=== PATIENT | male | born 1955 | race Two or more races ===

== ENCOUNTER 2020-10-22 20:28 | Emergency (ER) | payer SELFPAY ==
[~2020-10-22] VITALS: Ht 170.2 cm; Wt 77.1 kg
--- NOTE | 2020-10-22 20:41 | NUR ---
ED Nurse Note: PT brought in by [place] [employer]. PT can move all four extremities and has stable vitals on RA as documented. He is axox4. Per EMS he states he had a bottle of alcohol and was cold so he called 911. He is complianing of 10/10 chest pain but is asking mostly for warm blankets and a sandwich. IV line placed, labs sent, urine sent, ekg done at bedside.
[2020-10-22 20:45] VITALS: BP 120/84
--- NOTE | 2020-10-22 20:48 | Emergency Room Report ---
History of Present Illness General Chief Complaint: Alcohol Intoxication Source: Patient (Frederic Marquez MD) Present Illness HPI Disclaimer: Please note that this report is being documented using [employer] technology. This can lead to erroneous entry secondary to incorrect i nterpretation by the dictating instrument. HPI: 64-year-old male with history of hypertension presents by EMS for evaluation of alcohol intoxication. Primarily [place] Citizen-speaking. Patient was brought in by [facility] who state the patient is well-known to them. Patient was picked up at a liquor store with complaints of alcohol intoxication. He admits to drinking 1 L of hard liquor today. He reports left-sided chest pain is nonradiating. Denies cough or shortness of breath. Reports back pain. According to EMS these are frequent complaints of the patient. Unknown if he has CAD. Does not take any medications according to their EMR system. Patient is awake, alert and conversant. Slight slurring of his speech but able to make his needs known clearly. PMH: Chronic alcohol use PSH: Denied Allergies: Denied Social Hx: Regular alcohol use (Frederic Marquez MD) Allergies: Coded Allergies: No Known Allergies (Unverified , 10/22/20) COVID-19 Screening Contact w/high risk pt: No Experienced COVID-19 symptoms?: No COVID-19 Testing performed TEA BLENDER: No (Frederic Marquez MD) Review of Systems All Other Systems: negative except mentioned in HPI (Frederic Marquez MD) Physical Exam Vital Signs Date Time Temp Pulse Resp B/P (MAP) Pulse Ox O2 Delivery O2 Flow Rate FiO2 10/22/20 20:31 98.4 98 16 124/82 (96) 98 Room Air General: Awake and alert, no acute distress, disheveled and unkempt, appears slightly intoxicated HEENT: NC/AT. EOMI. mild dysarthria Cardiovascular: Borderline tachycardia. S1 and S2 normal. No murmur appreciated Resp: Normal work of breathing. No cough, wheezing or crackles appreciated Abdomen: Abdomen is soft, nondistended. Nontender Skin: Intact. No abrasions, laceration or rash over the exposed skin MSK: Normal tone and bulk. Moving all extremities. No obvious deformity. Neuro: Awake and alert. Mentating appropriately. Appears slightly intoxicated but conversant (Frederic Marquez MD) Medical Decision Making Diagnostic Impression: Primary Impression: Acute alcoholic intoxication Additional Impression: Elevated troponin ER Course 64-year-old male brought in for evaluation of alcohol intoxication. Patient is awake, arrives with stable vital signs. EKG on arrival shows left axis deviation and likely incomplete right bundle branch block but no signs of acute ischemia. Chest x-ray shows no infiltrates but does show some cardiomegaly. Alcohol elevated. Troponin returned elevated. No prior for comparison. Other labs within normal limits. Will admit for ACS rule out. Laboratory Tests Test 10/22/20 20:53 10/22/20 21:25 White Blood Count 4.0 K/UL (4.8-10.8) L Red Blood Count 3.80 M/UL (4.70-6.10) L Hemoglobin 11.9 G/DL (14.2-18.0) L Hematocrit 35.9 % (42.0-52.0) L Mean Corpuscular Volume 94 FL (80-99) Mean Corpuscular Hemoglobin 31.4 PG (27.0-31.0) H Mean Corpuscular Hemoglobin Concent 33.3 G/DL (32.0-36.0) Red Cell Distribution Width 17.4 % (11.6-14.8) H Platelet Count 130 K/UL (150-450) L Mean Platelet Volume 7.2 FL (6.5-10.1) Neutrophils (%) (Auto) 46.8 % (45.0-75.0) Lymphocytes (%) (Auto) 41.4 % (20.0-45.0) Monocytes (%) (Auto) 6.5 % (1.0-10.0) Eosinophils (%) (Auto) 3.9 % (0.0-3.0) H Basophils (%) (Auto) 1.3 % (0.0-2.0) Sodium Level 142 MMOL/L (136-145) Potassium Level 4.0 MMOL/L (3.5-5.1) Chloride Level 106 MMOL/L (98-107) Carbon Dioxide Level 28 MMOL/L (21-32) Anion Gap 8 mmol/L (5-15) Blood Urea Nitrogen 10 mg/dL (7-18) Creatinine 0.8 MG/DL (0.55-1.30) Estimated Glomerular Filtration Rate > 60 mL/min (>60) Glucose Level 89 MG/DL (74-106) Calcium Level 8.5 MG/DL (8.5-10.1) Total Bilirubin 0.5 MG/DL (0.2-1.0) Aspartate Amino Transferase (AST) 38 U/L (15-37) H Alanine Aminotransferase (ALT) 39 U/L (12-78) Alkaline Phosphatase 128 U/L (46-116) H Troponin I 0.121 ng/mL (0.000-0.056) Total Protein 7.8 G/DL (6.4-8.2) Albumin 3.7 G/DL (3.4-5.0) Globulin 4.1 g/dL Albumin/Globulin Ratio 0.9 (1.0-2.7) L Salicylates Level 2.4 ug/mL (2.8-20) L Acetaminophen Level < 2 MCG/ML (10-30) L Serum Alcohol 275 mg/dL Urine Opiates Screen Pending Urine Barbiturates Screen Pending Phencyclidine (PCP) Screen Pending Urine Amphetamines Screen Pending Urine Benzodiazepines Screen Pending Urine Cocaine Screen Pending Urine Marijuana (THC) Screen Pending (Frederic Marquez MD) ER Course 64-year-old male here with alcohol intoxication. I spoke with the physician at [facility], who said the patient comes to the their emergency department almost daily. Review of records show the patient has a persistent elevated troponin of around 1.2-1.4. Patient's troponin tonight is within this range. He is in no acute distress whatsoever and has remained hemodynamically stable in the emergency department. Suitable for discharge when clinically sober. I, Da Spear MD, confirm that this patient has been fully evaluated and is stable for discharge. (Da Spear M.D.) EKG Diagnostic Results Troponin ordered: Yes When was troponin ordered?: Oct 22, 2020 EKG Time: 20:48 Rate: normal Rhythm: NSR ST Segments: no acute changes Other Impression Sinus rhythm, left axis, normal intervals, incomplete right bundle branch block. QTc [address] segment elevation (Frederic Marquez MD) Rhythm Strip Diag. Results Rhythm Strip Time: 20:48 EP Interpretation: yes Rate: 90 Rhythm: NSR, no PVC's, no ectopy (Frederic Marquez MD) Chest X-Ray Diagnostic Results Chest X-Ray Diagnostic Results : Chest X-Ray Ordered: Yes # of Views/Limited/Complete: 1 View Indication: Chest Pain EP Interpretation: Yes Interpretation: no consolidation, no effusion, no pneumothorax, no acute cardiopulmonary disease Impression: No acute disease Electronically Signed by: Electronically signed by Dr. Frederic Marquez MD (Frederic Marquez MD) Last Vital Signs Date Time Temp Pulse Resp B/P (MAP) Pulse Ox O2 Delivery O2 Flow Rate FiO2 10/22/20 20:31 98.4 98 16 124/82 (96) 98 Room Air (Frederic Marquez MD) Disposition: ADMITTED INPATIENT Condition: Serious Scripts Folic Acid* (FOLIC ACID*) 1 Mg Tablet 1 MG ORAL DAILY for SUPPLEMENT, #30 TAB Prov: Frederic Marquez MD 10/22/20 Thiamine Hcl* (VITAMIN B-1*) 100 Mg Tablet 100 MG ORAL DAILY, #30 TAB 0 Refills Prov: Frederic Marquez MD 10/22/20 Frederic Marquez MD Oct 22, 2020 20:48 Da Spear M.D. Oct 22, 2020 23:35
[2020-10-22] MEDS ORDERED: VITAMIN B-1100 MG ORAL (21:02)
[2020-10-22] MEDS ORDERED: FOLIC ACID1 MG ORAL (21:02)
[2020-10-22 21:06] LABS: BASOPHILS % (AUTO) 1.3 % (0.0-2.0); EOSINOPHILS % (AUTO) 3.9 % (0.0-3.0); HEMATOCRIT 35.9 % (42.0-52.0); HEMOGLOBIN 11.9 G/DL (14.2-18.0); LYMPHOCYTES % (AUTO) 41.4 % (20.0-45.0); MEAN CORPUSCULAR VOLUME 94 FL (80-99); MONOCYTES % (AUTO) 6.5 % (1.0-10.0); NEUTROPHILS % (AUTO) 46.8 % (45.0-75.0); PLATELET COUNT 130 K/UL (150-450); RED CELL DISTRIBUTION WIDTH 17.4 % (11.6-14.8)
[2020-10-22 21:19] LABS: ANION GAP 8 mmol/L (5-15); BLOOD UREA NITROGEN 10 mg/dL (7-18); CALCIUM 8.5 MG/DL (8.5-10.1); CARBON DIOXIDE 28 MMOL/L (21-32); CHLORIDE 106 MMOL/L (98-107); CREATININE 0.8 MG/DL (0.55-1.30); SODIUM 142 MMOL/L (136-145)
[2020-10-22 21:23] LABS: ALANINE AMINOTRANSFERASE 39 U/L (12-78); ALBUMIN 3.7 G/DL (3.4-5.0); ALBUMIN/GLOBULIN RATIO 0.9 (1.0-2.7); ALKALINE PHOSPHATASE 128 U/L (46-116); ASPARTATE AMINO TRANSFERASE 38 U/L (15-37); BILIRUBIN,TOTAL 0.5 MG/DL (0.2-1.0)
--- NOTE | 2020-10-22 22:00 | NUR ---
ED Nurse Note: PT is resting comfortably with eyes closed, vitals stable on RA. Moved pt rooms dt nessesity of tele monitoring.
[2020-10-22 22:54] VITALS: BP 116/67
--- NOTE | 2020-10-23 00:13 | NUR ---
ED Nurse Note: Pt is resting comfortably, warm blankets applied again. Pt has eyes closed with even respirations. No signs of distress noted.
[2020-10-23 01:50] VITALS: BP 114/70
--- NOTE | 2020-10-23 01:51 | NUR ---
ED Nurse Note: Pt's eyes are closed, breathing is even and unlabored. No signs of distress noted.
--- NOTE | 2020-10-23 04:13 | NUR ---
ED Nurse Note: Pt is requesting food and water. Pt is able to verbalize in complete sentances. Breathing is even and unlabored.
[2020-10-23 04:35] VITALS: BP 114/90
--- NOTE | 2020-10-23 04:38 | NUR ---
ER DISCHARGE NOTE: Patient is cleared to be discharged per ERMD, pt is aox4, on room air, with stable vital signs. pt was given dc and prescription instructions, pt was able to verbalize understanding, pt id band and iv site removed without complications. pt is able to ambulate with walker as is his baseline. pt took all belongings. Pt refused placement options. Warm dry clothes provided appropriate for the weather. Kiana and juice provided.
--- NOTE | 2020-10-23 09:34 | Diagnostic Imaging Report ---
Indication: Chest pain Technique: XRAY Chest 1v Comparison: None Findings: Borderline cardiomegaly although heart size may be exaggerated by AP technique. Mediastinal contours are sharp. Mild right hilar prominence There is no focal airspace consolidation. No pleural effusions or pneumothorax. There are degenerative changes in the spine. No acute osseous body. Impression: No radiographic evidence of acute cardiopulmonary disease. Borderline cardiomegaly and mild hilar prominence, likely related to vascular ectasia and artifactually exaggerated due to AP technique. Additional etiologies are not excluded. Recommend further evaluation with follow-up PA and lateral views of the chest or chest CT.
== END 2020-10-23 04:40 | disposition home or self-care (01) ==
LOC: EDBD 20:28 → EMR 20:38 → CANBEDREQ 10-23 00:20 → EMR 10-23 04:40
DX: F10.129 Alcohol abuse with intoxication, unspecified (principal); Y90.8 Blood alcohol level of 240 mg/100 ml or more; R77.8 Other specified abnormalities of plasma proteins
CPT/HCPCS: 36415; 71045; 80053; 80307; 84484; 85025; 93005; 96360; 99285; G0480; J7030; U0002

== ENCOUNTER 2020-11-04 22:40 | Emergency (ER) | payer SELFPAY ==
[~2020-11-04] VITALS: Ht 170.2 cm; Wt 72.6 kg
[~2020-11-04 22:40] MED LIST: FOLIC ACID1 MG ORAL; VITAMIN B-1100 MG ORAL
--- NOTE | 2020-11-04 22:45 | NUR ---
ED Nurse Note: Pt [facility] [place] [employer] A42 from [place] for ETOH and arm pain.Per EMS report pt was seen at [facility] for same complaint and was dischaged, pt called 911 c/o arm pain. Upon arrival pt is uncooperative, not answering questions. AAOx2, breathing even and unlabored, vital signs stable.
[2020-11-04 22:47] VITALS: BP 112/70
--- NOTE | 2020-11-04 22:52 | Emergency Room Report ---
History of Present Illness General Chief Complaint: Intoxication Source: Patient, EMS Present Illness HPI Disclaimer: Please note that this report is being documented using [employer] technology. This can lead to erroneous entry secondary to incorrect interpretation by the dictating instrument. HPI: 65-year-old male presents by EMS for evaluation of alcohol intoxication. He was picked up at [employer] [place] for acting drunk. Patient has a long history of alcohol abuse and typically is seen at [facility] however they are saturation tonight he was brought to our emergency department. He has been here in the past. Patient was seen at [facility] twice today once for a fall sustaining an abrasion to the right forearm. Appears cleaned and no active bleeding at this time. Patient will not quantify how much he is drinking. He is being very difficult. His only complaint at this time is that he is cold and is requesting blankets and something to eat. PMH: Alcohol abuse PSH: Unable to obtain Allergies: Unable to obtain Social Hx: Alcohol abuse Allergies: Coded Allergies: No Known Allergies (Unverified , 10/22/20) COVID-19 Screening Contact w/high risk pt: No Experienced COVID-19 symptoms?: No Review of Systems All Other Systems: limited - Unable to obtain due to patient being uncooperative Physical Exam General: Awake and alert, appears mildly intoxicated, aggressive and rude with staff HEENT: NC/AT. EOMI. Cardiovascular: RRR. S1 and S2 normal. No murmur appreciated Resp: Normal work of breathing. No cough, wheezing or crackles appreciated Abdomen: Abdomen is soft, nondistended. Nontender Skin: Intact. No abrasions, laceration or rash over the exposed skin MSK: Normal tone and bulk. Moving all extremities. No obvious deformity. Neuro: Awake and alert. Mentating appropriately. Mildly intoxicated Medical Decision Making Diagnostic Impression: Primary Impression: Acute alcoholic intoxication ER Course Is a 65-year-old male with history of chronic alcohol abuse presents for alcohol intoxication. He is awake alert and requesting blankets and something to eat. He has no other complaints at this time. He has been seen twice today at [facility] for similar complaints according to EMS. Will allow to metabolize in ER. Do not believe he requires emergent labs or imaging at this time. Will advance work-up if his condition should change. 0540: Patient is allowed to metabolize in the emergency department. He is sober ambulating with the use of his walker that was brought by EMS. Stable for discharge. Disposition: HOME, SELF-CARE Condition: Stable Frederic Marquez MD Nov 04, 2020 22:52
--- NOTE | 2020-11-05 00:07 | NUR ---
ED Nurse Note: pt laying in bed sleeping, arousable to voice. No complaints from pt.
--- NOTE | 2020-11-05 02:35 | NUR ---
ED Nurse Note: pt laying in bed with eyes closed, breathing even and unlabored. Warm blankets provided.
[2020-11-05 05:50] VITALS: BP 119/67
--- NOTE | 2020-11-05 05:50 | NUR ---
ER DISCHARGE NOTE: Patient is cleared to be discharged per ERMD, pt is aox4, on room air, with stable vital signs. pt was given dc and prescription instructions, homeless resource packet given to pt, pt was able to verbalize understanding, pt id band removed. pt is able to ambulate with steady gait. pt took all belongings.
== END 2020-11-05 05:50 | disposition home or self-care (01) ==
LOC: EDBD 22:40 → EMR 23:35
DX: F10.129 Alcohol abuse with intoxication, unspecified (principal)
CPT/HCPCS: 99282

== ENCOUNTER 2020-11-29 01:58 | Emergency (ER) | payer SELFPAY ==
[~2020-11-29] VITALS: Ht 172.7 cm; Wt 72.6 kg
[2020-11-29] MEDS ORDERED: Haloperidol 5mg/ml Inj IM ONE ×2 (02:00→03:00)
[2020-11-29] MEDS ORDERED: LORazepam Inj 2mg/ml 1ml IM ONE (02:00)
--- NOTE | 2020-11-29 02:00 | NUR ---
Patient was brought in by ambulance. Patient was found laying in the [place]. Patient is here for alcohol intoxication.
[2020-11-29] MEDS ORDERED: LORazepam Inj 2mg/ml 1ml ONE (02:14)
--- NOTE | 2020-11-29 02:29 | Emergency Room Report ---
History of Present Illness General Chief Complaint: Alcohol Intoxication Present Illness HPI 65-year-old male with history of alcoholism here with alcohol intoxication. Patient was found laying down in a park yelling obscenities. When paramedics arrived the patient was complaining of generalized body pain and was screaming obscenities at the paramedics. Here in the emergency department the patient smells of alcohol and is acting erratically yelling at staff. He admits to drinking heavy mount of alcohol tonight. Denies drug use. Denies homicidal suicidal ideation. Allergies: Coded Allergies: No Known Allergies (Unverified , 10/22/20) COVID-19 Screening Contact w/high risk pt: No Experienced COVID-19 symptoms?: No COVID-19 Testing performed FIRE SERVICES PLUMBER: No Nursing Documentation-PMH Hx Hypertension: Yes Hx Cerebrovascular Accident: Yes Review of Systems All Other Systems: negative except mentioned in HPI Physical Exam Vital Signs Date Time Temp Pulse Resp B/P (MAP) Pulse Ox O2 Delivery O2 Flow Rate FiO2 11/29/20 01:40 97.5 96 20 133/90 (104) 98 Sp02 EP Interpretation: reviewed, normal General Appearance: no apparent distress, alert, non-toxic Head: normocephalic, other - Superficial abrasion parietal scalp Eyes: bilateral eye normal inspection, bilateral eye PERRL ENT: hearing grossly normal, normal pharynx, no angioedema, normal voice Neck: full range of motion, supple/symm/no masses Respiratory: chest non-tender, lungs clear, normal breath sounds, speaking full sentences Cardiovascular #1: regular rate, rhythm, no edema Cardiovascular #2: 2+ carotid (R), 2+ carotid (L), 2+ radial (R), 2+ radial (L), 2+ dorsalis pedis (R), 2+ dorsalis pedis (L) Gastrointestinal: normal bowel sounds, non tender, soft, non-distended, no guarding, no rebound Rectal: deferred Genitourinary: normal inspection, no CVA tenderness Musculoskeletal: back normal, normal range of motion, gait/station normal, non- tender Neurologic: alert, motor strength/tone normal, oriented x3, sensory intact, responsive, speech normal Psychiatric: other - Heavily intoxicated. Smells of alcohol. Yelling obscenities at staff Lymphatic: no adenopathy Medical Decision Making Diagnostic Impression: Primary Impression: Acute alcoholic intoxication ER Course Laboratory Tests Test 11/29/20 03:36 White Blood Count 2.7 K/UL (4.8-10.8) L Red Blood Count 3.26 M/UL (4.70-6.10) L Hemoglobin 9.0 G/DL (14.2-18.0) L Hematocrit 31.3 % (42.0-52.0) L Mean Corpuscular Volume 96 FL (80-99) Mean Corpuscular Hemoglobin 27.7 PG (27.0-31.0) Mean Corpuscular Hemoglobin Concent 28.9 G/DL (32.0-36.0) L Red Cell Distribution Width 17.2 % (11.6-14.8) H Platelet Count 92 K/UL (150-450) L Mean Platelet Volume 6.5 FL (6.5-10.1) Neutrophils (%) (Auto) % (45.0-75.0) Lymphocytes (%) (Auto) % (20.0-45.0) Monocytes (%) (Auto) % (1.0-10.0) Eosinophils (%) (Auto) % (0.0-3.0) Basophils (%) (Auto) % (0.0-2.0) Sodium Level 145 MMOL/L (136-145) Potassium Level 4.1 MMOL/L (3.5-5.1) Chloride Level 110 MMOL/L (98-107) H Carbon Dioxide Level 27 MMOL/L (21-32) Anion Gap 8 mmol/L (5-15) Blood Urea Nitrogen 9 mg/dL (7-18) Creatinine 0.8 MG/DL (0.55-1.30) Estimated Glomerular Filtration Rate > 60 mL/min (>60) Glucose Level 83 MG/DL (74-106) Calcium Level 8.1 MG/DL (8.5-10.1) L Total Bilirubin 0.3 MG/DL (0.2-1.0) Aspartate Amino Transferase (AST) 74 U/L (15-37) H Alanine Aminotransferase (ALT) 46 U/L (12-78) Alkaline Phosphatase 128 U/L (46-116) H Total Protein 5.9 G/DL (6.4-8.2) L Albumin 2.5 G/DL (3.4-5.0) L Globulin 3.4 g/dL Albumin/Globulin Ratio 0.7 (1.0-2.7) L Salicylates Level 3.5 ug/mL (2.8-20) Acetaminophen Level < 2 MCG/ML (10-30) L Serum Alcohol 254 mg/dL 65-year-old male here with acute alcohol intoxication. Patient smells of alcohol and was screaming obscenities at staff on arrival to the emergency department. He was given Haldol and Ativan and was resting soundly in the emergency department. On closer examination the patient had multiple abrasions on his parietal scalp. Patient was unable to answer questions regarding the origins of these abrasions. CT head currently pending. Last Vital Signs Date Time Temp Pulse Resp B/P (MAP) Pulse Ox O2 Delivery O2 Flow Rate FiO2 11/29/20 01:40 97.5 96 20 133/90 (104) 98 Da Spear M.D. Nov 29, 2020 02:29
[2020-11-29 03:13] VITALS: BP 124/76
[2020-11-29 03:43] LABS: HEMATOCRIT 31.3 % (42.0-52.0); MEAN CORPUSCULAR VOLUME 96 FL (80-99); PLATELET COUNT 92 K/UL (150-450); RED BLOOD COUNT 3.26 M/UL (4.70-6.10); RED CELL DISTRIBUTION WIDTH 17.2 % (11.6-14.8); WHITE BLOOD COUNT 2.7 K/UL (4.8-10.8)
[2020-11-29 03:53] LABS: ANION GAP 8 mmol/L (5-15); BLOOD UREA NITROGEN 9 mg/dL (7-18); CALCIUM 8.1 MG/DL (8.5-10.1); CARBON DIOXIDE 27 MMOL/L (21-32); CHLORIDE 110 MMOL/L (98-107); CREATININE 0.8 MG/DL (0.55-1.30); POTASSIUM 4.1 MMOL/L (3.5-5.1); SODIUM 145 MMOL/L (136-145)
[2020-11-29 03:58] LABS: ALANINE AMINOTRANSFERASE 46 U/L (12-78); ALBUMIN 2.5 G/DL (3.4-5.0); ALBUMIN/GLOBULIN RATIO 0.7 (1.0-2.7); ALKALINE PHOSPHATASE 128 U/L (46-116); ASPARTATE AMINO TRANSFERASE 74 U/L (15-37); BILIRUBIN,TOTAL 0.3 MG/DL (0.2-1.0)
--- NOTE | 2020-11-29 05:52 | NUR ---
Abrasion to to left side of head, pt does not recall what happened to him last night, awake alert, oriented to self , disoriented to time,place and situation. CT ordered.
--- NOTE | 2020-11-29 06:17 | Diagnostic Imaging Report ---
EXAM: CT Head Without Intravenous Contrast CLINICAL HISTORY: FALL TECHNIQUE: Axial computed tomography images of the head/brain without intravenous contrast. CTDI is 57.7 mGy and DLP is 1122.9 mGy-cm. One or more of the following dose reduction techniques were used: automated exposure control, adjustment of the mA and/or kV according to patient size, use of iterative reconstruction technique. COMPARISON: No relevant prior studies available. FINDINGS: No acute intracranial hemorrhage. No midline shift or mass effect. Encephalomalacia in the right frontoparietal lobe, consistent with old infarct. Age-related cerebral volume loss. Periventricular and subcortical white matter hypoattenuation, consistent with chronic microangiopathy. The visualized orbits appear grossly unremarkable. The calvarium is intact. The visualized paranasal sinuses and mastoid air cells are grossly clear. IMPRESSION: No acute intracranial hemorrhage, midline shift, or mass effect. 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
--- NOTE | 2020-11-29 06:30 | NUR ---
ER DISCHARGE NOTE: Patient is cleared to be discharged per ERMD, pt is aox2, on room air, with stable vital signs. pt was given dc instructions, pt was able to verbalize understanding, pt id band removed without complications. pt is able to ambulate. pt took all belongings
== END 2020-11-29 06:43 | disposition home or self-care (01) ==
LOC: EDBD 01:58 → EMR 02:30
DX: F10.129 Alcohol abuse with intoxication, unspecified (principal); S00.01XA Abrasion of scalp, initial encounter; I10 Essential (primary) hypertension; Z86.73 Personal history of transient ischemic attack (TIA), and cerebral infarction without residual deficits; Y90.8 Blood alcohol level of 240 mg/100 ml or more; X58.XXXA Exposure to other specified factors, initial encounter; Y93.9 Activity, unspecified; Y92.9 Unspecified place or not applicable
CPT/HCPCS: 36415; 70450; 80053; 80307; 85025; 96372; 99284; G0480; J1630